=== PATIENT | female | born 1965 | race Caucasian/White ===

== ENCOUNTER → 2021-07-14 | Outpatient (CLI) | payer OTHER, SELFPAY ==
[2021-07-14 15:36] LABS: Absolute Neutrophil Count 3.9 X10^3/uL (2.0-7.7); Basophil# 0.03 X10^3/uL; Basophil% 0.5 % (0-1); Eosinophil# 0.25 X10^3/uL; Eosinophils% 3.8 % (0-5); Hematocrit 41.3 % (37-47); Hemoglobin 13.7 g/dL (12.0-15.0); Lymphocyte % 28.6 % (19-41); Mean Corp Hgb Conc 33.2 g/dL (32-36); Mean Corpuscular Hgb 27.9 pg (27.0-32.0); Mean Corpuscular Volume 84.1 fL (81-99); Mean Platelet Vol. 9.8 fl (6.2-12.0); Monocyte# 0.55 X10^3/uL; Monocyte% 8.3 % (0-10); NRBC Flagged by Analyzer 0 % (0-5); Neutrophil % 58.5 % (47-70); Platelet Count 244 K/mm3 (150-450); RBC Distribution Width CV 14.4 % (11.6-14.6); Red Blood Count 4.91 M/mm3 (4.2-5.4); White Blood Count 6.7 K/mm3 (4.4-11.0)
[2021-07-14 15:49] LABS: ALB/GLOB Ratio 1.1 RATIO (0.9-2.4); AST(SGOT) 16 U/L (15-37); Alanine Aminotransfer ALT/SGPT 30 U/L (13-56); Albumin, Serum 3.6 g/dL (3.2-5.0); Alkaline Phosphatase 98 U/L (45-117); Anion Gap 5 (5-15); BUN 14 mg/dL (7-18); BUN/Creat Ratio 14.1 RATIO (10-20); Calcium,Total 9.1 mg/dL (8.5-10.1); Chloride 107 mmol/L (98-107); Creatinine, Serum 0.99 mg/dL (0.55-1.02); EST Glomerular Filtration Rate 61 mL/min (>60); Est Glom Filt Rate - Afr Amer 74 mL/min (>60); Globulin 3.4 g/dL (2.2-4.2); Glucose 90 mg/dL (74-106); Sodium Level 140 mmol/L (136-145)
== END | disposition home or self-care (01) ==
LOC: MFPLAB 12:34
PROVIDERS: PCP Family Medicine; Referring Provider Family Medicine; Visit Provider Family Medicine
DX: Z01.818 Encounter for other preprocedural examination (principal)
CPT/HCPCS: 36415; 80053; 85025

== ENCOUNTER 2021-08-07 11:59 | Day surgery (SDC) | payer OTHER, SELFPAY ==
[2021-08-07] VITALS (7 sets, daily range): BP systolic 129–167; BP diastolic 69–93; PULSE 61–73; RESP 12–16; TEMP 36.2–37.3; O2SAT 96–100; BMI 38.7
[2021-08-07] MEDS: Lactated Ringers 1,000 ML 60 ML IV (12:52)
--- NOTE | 2021-08-07 13:06 | RAD_ITS ---
STUDY: X-RAY - RIGHT FOOT CLINICAL: Female, 56 years old. Post op TECHNIQUE: 3 view(s) of the foot. COMPARISON: None. FINDINGS: Normal talus, calcaneus, and tarsal bones. Small plantar calcaneal enthesophyte. Normal visualized subtalar, talonavicular, calcaneocuboid, tarsal and tarsometatarsal articulations. Normal metatarsi. Normal metatarsophalangeal joint of the great toe. Normal tibial and fibular sesamoid bones. Normal interphalangeal joint of the great toe. Normal phalanges of the great toe. Normal second through fifth metatarsophalangeal joints. Normal interphalangeal joints and phalanges of the lesser toes. The soft tissue structures are unremarkable. RAD/Foot min 3 Views IMPRESSION: Normal x-ray examination of the foot. Electronically Signed: Mark Khalil MD at 16:36 EDT ,
[2021-08-07] MEDS: Bupivacaine Mpf 0.5% 30 ML VIAL (13:40)
[2021-08-07] MEDS: Lidocaine 1% (20 ml mdv) 20 ML Vial (13:40)
--- NOTE | 2021-08-07 14:48 | OP.PCM_ITS ---
Problems Associated Problem List Diagnoses (1) Plantar fasciitis of right foot: (2) Pain in right foot: Report of Operation Date of Procedure: 08/07/21 Pre-Operative Diagnosis: Chronic recalcitrant plantar fasciitis, right foot Post-Operative Diagnosis: Chronic recalcitrant plantar fasciitis, right foot Surgery/Procedure Performed:: Instep plantar fasciotomy right foot Description of Surgical Findings:: See operative report for findings Surgeon: Channing Luther artistic director: None (Evan Chavez D.P.M. PGY 2) Type of Anesthesia: General and Local (20 cc 1:1 mixture of 1% lidocaine plain and 0.5% Marcaine plain. 8 cc of 1% lidocaine plain) Specimen's removed: None Drains: None Estimated Blood Loss (mL): < 5cc Description of Procedure: HPI/indication: Patient is a 56-year-old female who presented to the office in February 2021 with plantar fasciitis of the right foot. She was treated with conservative measures including but not limited to supportive shoe gear, avoidance of barefoot, power step orthotic inserts, icing to the site of maximum tenderness, oral anti-inflammatories, stretching program, corticosteroid injections, oral steroid taper, physical therapy, medical leave f rom work to rest the site, and immobilization in a cam boot but has failed to demonstrate any significant signs of improvement. She has previously had plantar fasciitis of her left foot which also failed to respond to conservative treatment but subsequently underwent fasciotomy by another provider, which was successful. Patient asked to proceed with surgical intervention for her right foot plantar fasciitis. I reviewed her condition and reviewed the treatment options. Patient continues to have limiting pain and significant symptoms despite nonsurgical care. Patient would like to proceed with surgical intervention. We discussed the procedure in great detail. Reviewed the rationale with this patient in great detail. We discussed all possible benefits versus the risks and potential complications in detail. Advised the patient the risks include, but not limited to pain, continued pain, deformity, continued deformity, recurrence, overcorrection, under correction, numbness, swelling, neuritis, scarring, poor cosmetic result, bleeding, need for further surgery/procedures, fracture, nonhealing/delayed healing, dehiscence, infection, blood clots, allergic reaction, transfer lesions, loss of function, postop arthritis, complex regional pain syndrome, weakness, shoe gear problems, inability to walk, inability to wear shoes, contracted toe, stroke, heart attack, addiction to pain medication, loss of limb, loss of life. The patient also understands there is an inherent risk with being in the hospital and undergoing a procedure during the time of COVID-19 pandemic. The patient understands precautions are being taken to prevent transmission. This patient understands the benefits and risks of having a procedure at this time versus waiting in which the benefits are reasonable at this time. Patient expressed understanding and agreement. Patient was able to repeat these back. The alternative options were discussed and reviewed with patient in great detail, reviewed all of the risks versus possible benefits of all options. The typical postoperative course was reviewed. Patient expressed understanding and agreement. The consent forms were reviewed with the patient and the patient freely signed them. No guarantees were given. She has undergone and obtained medical clearance from her PCP and labs were reviewed prior to surgery. She was scheduled to undergo instep plantar fasciotomy of the right foot at [facility] on 08/07/2021. Procedure: Under mild sedation patient was brought into the operating room placed on the table in the supine position. Following IV sedation a local anesthetic block was performed about the right ankle consisting of 20 cc one-to-one mixture of 1% lidocaine plain and 0.5% Marcaine plain. A pneumatic calf tourniquet was placed about the patient's right calf. Next, the right foot was scrubbed, prepped, and draped in the usual aseptic manner. An Esmarch bandage was used to exsanguinate the right foot and the pneumatic calf tourniquet was inflated. Attention was directed to the plantar aspect of the right foot. Utilizing a #15 blade a 3 cm transverse incision was made slightly distal to the heel pad as it slipped into the arch of the foot following the skin lines, overlying the medial and central bands of the fascia. At this time patient was able to still feel pain from incision site and thus an additional 8 cc of 1% lidocaine plain was administered about the surgical site. She was also complaining of pain from tourniquet irritation and thus was converted to a general anesthesia. Following conversion of general anesthesia attention was again directed to the plantar aspect of the right foot where the incision was deepened utilizing blunt dissection until the fascial bands were visualized. A Jonathantlaner retractor was inserted into allow better visualization of the fascial band. Visualization of the fascial band was confirmed and the fascial band was noted to be taut. At this time a #15 blade was used to transect the medial and central plantar fascial bands. The digits were then dorsiflexed. The muscle belly of the flexor digitorum longus could be visualized beneath the transected fascial band. The site was seated for any remaining fibers. The site was flushed with copious amounts of normal sterile saline. The subcutaneous tissues was closed with a 3- 0 Monocryl. The skin was reapproximated with a 3-0 Prolene. At this time the pneumatic calf tourniquet was deflated and a prompt hyperemic response was noted to the digits of the right foot. The site was dressed with Betadine soaked Adaptic, 4 x 4 fluff, 4 x 4 gauze, Kerlix, ABD, Kerlix, a 4 inch Paramjit wrap and 6 inch Paramjit wrap were rolled onto the foot. The patient tolerated the procedure and anesthesia well and was transported to PACU with vital signs stable and vascular status intact to the right foot. Postoperative radiographs were obtained and reviewed. She will be discharged home once anesthesia protocol has been met. The patient and her have been instructed on her postoperative care. She is permitted to be weightbearing to the right foot with the assistance of her CAM boot. She is instructed to keep the dressings clean, dry, and intact to the right foot. She may shower with the use of a cast bag. She is to elevate the right foot at all times of rest. Discharge instructions were ordered and given to the family with instructions to call the office for any foot or ankle problems. She is scheduled for her first postoperative appointment in the office next week. Grafts/Implants Used: None Complications None Admit VTE Documentation VTE Present on Admission: Yes VTE Mechan Device Prophylaxis: SCD's VTE Pharm Prophylaxis ordered?: No Reason prophylaxis not ordered:: Procedure Not Indicated
[2021-08-07] MEDS: HYDROcodone Bitartrate/Apap 5/325 Tablet PO (16:05)
--- NOTE | 2021-08-07 16:08 | PCM.DC ---
Discharge Instructions Diet Discharge Diet: No restrictions Activity Discharge Activity: May Shower (Wear cast bag to right foot when showering, may transfer off right heel) Weight Bearing Status: Partial weight bearing (May bear weight with assitance of CAM boot to Right foot) Keep extremity elevated above heart level: Right Leg (Elevate right foot at all times of rest) Dressing / Incision Call your doctor if your incision/area has: - (Redness moving up the leg or pain not controlled with pain medication) Call your doctor if you observe: Fever of 101 or Higher, Chest pain and Calf discomfort Change Dressing in: do not change dressing (Physician will change dressings at first post-op appointment) Cleanse incision/area with: Do not get Incision Wet and Keep Dressing Clean & Dry Follow Up Care Please Follow Up With: Channing Luther DPM When: 1 week. Patient has scheduled post-op appointment next Tuesday08/14/21 Test Results: Test results from this visit will be discussed in further detail at your follow-up appointment, if applicable. Discharge Plan Admission Primary Reason for Your Visit: Chronic Recalcitrant Plantar Fasciitis, Right foot Attending Provider: Channing Luther Primary Care Provider: Hardeep Wang Instructions Additional Instructions / Restrictions: Keep dressings clean, dry, and intact to Right foot. Dressings will be changed at first post-operative visit May apply ice behind the Right knee for post-operative pain control May be weight bearing to Right foot with assistance of CAM boot May shower with Cast bag/covering on Right foot, may utilize Right heel to transfer in shower. Elevate Right foot at all times of rest to control post-operative swelling. Discharge Orders/Prescriptions Prescriptions: New oxycodone-acetaminophen 5-325 mg tablet 1 tab PO Q6H PRN (Reason: pain) 7 Days Qty: 28 RF: 0 No Action meloxicam 15 mg tablet 15 mg PO DAILY RF: 0 acyclovir 400 mg tablet 400 mg PO DAILY RF: 0 hyoscyamine sulfate 0.125 mg Tablet,Disintegrating 0.125 mg PO PRN PRN (Reason: BLADDER CRAMPING) RF: 0 pantoprazole 40 mg tablet,delayed release (DR/EC) 40 mg PO BID RF: 0 zinc 50 mg Tablet 50 mg PO DAILY RF: 0 estradiol 0.5 mg tablet 0.5 mg PO DAILY RF: 0 metoprolol succinate 25 mg tablet extended release 24 hr 25 mg PO DAILY RF: 0 ergocalciferol (vitamin D2) 1,250 mcg (50,000 unit) capsule 50,000 unit PO QPM RF: 0 albuterol sulfate 90 mcg/actuation HFA aerosol inhaler 1 - 2 puff INHALATION PRN PRN (Reason: ASTHMA) RF: 0 losartan 100 mg tablet 100 mg PO DAILY RF: 0 vitamin B complex [Vitamins B Complex] Capsule 1 cap PO DAILY RF: 0 biotin 400 mcg Tablet 5,000 mcg PO BID RF: 0 glucosamine-chondroitin [Osteo Bi-Flex] 250-200 mg Tablet 2 tab PO BID RF: 0 Dulera 200-5 mcg/actuation HFA aerosol inhaler 2 puff INHALATION DAILY RF: 0 Referrals / Follow Up: Hardeep Wang DO [Primary Care Provider] - Disposition Disposition (needs filled in before D/C Order can be placed): Home, Self Care
== END 2021-08-07 16:56 | disposition home or self-care (01) ==
LOC: SDC 12:05 → AC 12:06
PROVIDERS: PCP Student in an Organized Health Care Education/Training Program; Referring Provider Student in an Organized Health Care Education/Training Program; Visit Provider Student in an Organized Health Care Education/Training Program
PROC: (CPT 28008; principal; 2021-08-07 13:15)
DX: M72.2 Plantar fascial fibromatosis (principal); J45.909 Unspecified asthma, uncomplicated; I10 Essential (primary) hypertension; Z79.899 Other long term (current) drug therapy; K21.9 Gastro-esophageal reflux disease without esophagitis; Z87.19 Personal history of other diseases of the digestive system
CPT/HCPCS: 28060; 01470; 73630; J7120; J2405